=== PATIENT | female | born 1970 | race Caucasian/White ===

== ENCOUNTER 2017-02-27 10:20 | Emergency (ER) | payer OTHER ==
[~2017-02-27] VITALS: Ht 162.6 cm; Wt 61.2 kg
[2017-02-27 12:38] VITALS: BP 113/58
== END 2017-02-27 12:38 | disposition home or self-care (01) ==
LOC: ED 10:20
DX: M54.42 Lumbago with sciatica, left side (principal); R03.0 Elevated blood-pressure reading, without diagnosis of hypertension
CPT/HCPCS: J3010; Q0162

== ENCOUNTER 2017-03-01 21:24 | Emergency (ER) | payer OTHER ==
[2017-03-02 00:33] VITALS: BP 139/93
== END 2017-03-02 00:33 | disposition home or self-care (01) ==
LOC: ED 21:24
DX: B02.9 Zoster without complications (principal); M54.5 Low back pain; Z94.4 Liver transplant status
CPT/HCPCS: J1170; J2405

== ENCOUNTER 2017-11-13 09:10 | Emergency (ER) | payer OTHER ==
[~2017-11-13] VITALS: Ht 157.5 cm; Wt 60.8 kg
[2017-11-13 09:19] VITALS: Ht 157.5 cm; Wt 60.8 kg
[2017-11-13 11:00] VITALS: BP 132/82
== END 2017-11-13 11:00 | disposition home or self-care (01) ==
LOC: ED 09:10
DX: M25.561 Pain in right knee (principal); M81.0 Age-related osteoporosis without current pathological fracture; Z94.4 Liver transplant status; Z90.710 Acquired absence of both cervix and uterus
CPT/HCPCS: J1885

== ENCOUNTER 2018-07-03 14:36 | Emergency (ER) | payer OTHER ==
[~2018-07-03] VITALS: Ht 167.6 cm; Wt 59.0 kg
[2018-07-03 15:24] LABS: microscopic required? YES; urine erythrocyte TRACE (NEGATIVE)
[2018-07-03 15:57] VITALS: BP 114/66
== END 2018-07-03 15:57 | disposition home or self-care (01) ==
LOC: ED 14:36
PROVIDERS: Emergency Medicine
DX: N39.0 Urinary tract infection, site not specified (principal); M81.0 Age-related osteoporosis without current pathological fracture; F17.210 Nicotine dependence, cigarettes, uncomplicated; Z94.4 Liver transplant status; Z90.712 Acquired absence of cervix with remaining uterus
CPT/HCPCS: J0690; Q0162

== ENCOUNTER 2019-07-31 13:45 | Emergency (ER) | payer OTHER ==
[~2019-07-31] VITALS: Ht 175.3 cm; Wt 61.2 kg
[2019-07-31 13:58] VITALS: Ht 175.3 cm; Wt 61.2 kg
[2019-07-31 16:14] VITALS: BP 105/65
== END 2019-07-31 16:14 | disposition home or self-care (01) ==
LOC: ED 13:45
DX: S93.402A Sprain of unspecified ligament of left ankle, initial encounter (principal); S93.602A Unspecified sprain of left foot, initial encounter; X50.1XXA Overexertion from prolonged static or awkward postures, initial encounter; Y93.89 Activity, other specified; Y92.89 Other specified places as the place of occurrence of the external cause; Y99.8 Other external cause status